=== PATIENT | male | born 1960 | race Caucasian/White ===

== ENCOUNTER 2017-09-20 05:56 | Day surgery (SDC) | payer OTHER ==
[2017-09-20] MEDS ORDERED: ROCURONIUM BROMIDE 50MG/5ML VIAL IV ONE (05:57)
[2017-09-20] MEDS ORDERED: LIDOCAINE 2% MDV (20MG/ML) 20ML VIAL IV ONE (05:57)
[2017-09-20] MEDS ORDERED: SEVOFLURANE 250 ML INH ONE (05:57)
[2017-09-20] MEDS ORDERED: TRANEXAMIC ACID 1,000 MG/10 ML ML IV ONE (05:57)
[2017-09-20] MEDS ORDERED: VANCOMYCIN HCL 1 GM VIAL IVPB ONE (05:57)
[2017-09-20] MEDS ORDERED: KETOROLAC 30 MG/ML VIAL IVP ONE (05:57)
[2017-09-20] MEDS ORDERED: NEOSTIGMINE 1 MG/1 ML,10ML VIAL IV ONE (05:57)
[2017-09-20] MEDS ORDERED: PROPOFOL 10 MG/ML VIAL IV ONE (05:57)
[2017-09-20] MEDS ORDERED: GLYCOPYRROLATE 0.2 MG/ML ML IV ONE (05:57)
[2017-09-20] MEDS ORDERED: HYDROMORPHONE HCL 2 MG/ML VIAL IV ONE (05:57)
[2017-09-20] MEDS ORDERED: SUFENTANIL CITRATE 50 MCG/ML AMPUL IV ONE (05:57)
[2017-09-20] MEDS ORDERED: VANCOMYCIN HCL 1,000 MG in DEXTROSE 5 % IN WATER 250 ML IVPB ONE ×2 (06:00)
[2017-09-20] MEDS ORDERED: METOCLOPRAMIDE 10 MG TABLET PO ONE (06:00)
[2017-09-20] MEDS ORDERED: CELECOXIB 100 MG CAPSULE PO ONE (06:00)
[2017-09-20] MEDS ORDERED: ACETAMINOPHEN 1,000 MG/100 ML BTL IV ONE (06:00)
[2017-09-20] MEDS ORDERED: MECLIZINE 25 MG TABLET PO ONE (06:00)
[2017-09-20] MEDS ORDERED: FAMOTIDINE 20MG TABLET PO ONE (06:00)
[2017-09-20 06:54] LABS: ABO GROUP A; ANTIBODY SCREEN NEGATIVE (NEGATIVE); RH TYPE POSITIVE
[2017-09-20] MEDS ORDERED: MAGNESIUM HYDROXIDE 30 ML UDC PO PRN (08:38)
[2017-09-20] MEDS ORDERED: ONDANSETRON 4 MG ODT TABLET SL PRN (08:38)
[2017-09-20] MEDS ORDERED: DIPHENHYDRAMINE HCL 25 MG CAPSULE PO PRN (08:38)
[2017-09-20] MEDS ORDERED: ACETAMINOPHEN W/ CODEINE 300MG/30MG TABLET PO PRN ×2 (08:38)
[2017-09-20] MEDS ORDERED: NALOXONE 0.4 MG/1 ML VIAL IVP PRN (08:38)
[2017-09-20] MEDS ORDERED: TRAMADOL HCL 50 MG TABLET PO PRN ×2 (08:38)
[2017-09-20] MEDS ORDERED: HYDROCODONE/APAP 7.5/325MG TABLET PO PRN ×2 (08:38)
[2017-09-20] MEDS ORDERED: BISACODYL 10 MG SUPP RC PRN (08:38)
[2017-09-20] MEDS ORDERED: KETOROLAC 30 MG/ML VIAL IVP PRN ×2 (08:38)
[2017-09-20] MEDS ORDERED: METOCLOPRAMIDE 10 MG TABLET PO PRN (08:38)
[2017-09-20] MEDS ORDERED: HYDROCODONE/APAP 5/325MG TABLET PO PRN ×2 (08:38)
[2017-09-20] MEDS ORDERED: ACETAMINOPHEN 325 MG TAB PO PRN (08:38)
[2017-09-20] MEDS ORDERED: PROMETHAZINE HCL 25 MG TABLET PO PRN (08:38)
[2017-09-20] MEDS ORDERED: AL HYDROX/MAG HYDROX 30ML UD PO PRN (08:38)
[2017-09-20] MEDS ORDERED: ACETAMINOPHEN W/ CODEINE 300MG/60MG TABLET PO PRN ×2 (08:38)
[2017-09-20] MEDS ORDERED: DEXTROSE 5 % AND 0.9 % NACL 1,000 ML IV PRN (10:00)
[2017-09-20] MEDS ORDERED: DOCUSATE SODIUM 100 MG CAPSULE PO SCH (10:00)
[2017-09-20] MEDS ORDERED: VANCOMYCIN HCL 500 MG in 0.9 % SODIUM CHLORIDE 100ML 100 ML IVPB SCH (11:00)
[2017-09-20 12:36] LABS: HEMATOCRIT 38.9 % (42.0-52.0)
--- NOTE | 2017-09-20 13:13 | RADIOLOGY REPORT ---
EXAM: RIGHT HIP HISTORY: POSTOP. TECHNIQUE: A single AP view of the right hip was performed. FINDINGS: The right hip prosthesis is in place. No evidence of fracture or dislocation. IMPRESSION: RIGHT HIP PROSTHESIS IN PLACE. JOB NUMBER: [id number] [facility]
--- NOTE | 2017-09-20 13:31 | Operative Note ---
DATE OF SURGERY: 09/20/2017 PREOPERATIVE DIAGNOSIS: End-stage right hip arthrosis. POSTOPERATIVE DIAGNOSIS: End-stage right hip arthrosis. OPERATION: Right total hip arthroplasty. Surgeon: Nayan Davis MD Anesthesia: WILFREDO Trevizo. COMPLICATIONS: None. 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 COMPONENTS PLACED: [employer] Synergy total hip arthroplasty system cemented collar size 16 high offset femoral stem with a 13 centralizer, a distal cement restrictor, and a 36 plus 4 mm Oxinium femoral head component, a 62 mm 3-hole acetabular shell with 1 acetabular screw, 2 screw caps, and a centrally-threaded screw cap and a 20-degree hooded highly cross-linked polyethylene liner Indication: A 57-year-old male who has had severe pain and dysfunction of his hip for several years. Failed nonoperative treatment. Scheduled for procedure above. I explained all risks and benefits in detail for the diagnosis and procedure including but not limited to infection, nerve injury, vessel injury, persistent pain, stiffness, numbness, tingling in his hip, periprosthetic fracture, need for resection arthroplasty shoulder the components become infected or loosen, blood clot, need for anticoagulation to prevent blood clots and risks associated with these medications, and need for further procedures. All his questions were answered. The course was outlined. He agreed to proceed. PROCEDURE: The patient brought to the OR and placed in the left lateral decubitus position. The right hip and lower extremity prepped and draped in sterile fashion. Prepped using Chloraprep and draped. An intraoperative timeout was performed. Next, a standard posterior approach was performed at the hip. Intraoperative timeout was performed. Incision was marked out, infiltrated with 0.5% Marcaine with epinephrine using an incision marking template. Skin and subcutaneous tissue dissected down to gluteal fascia. Gluteal fascia split longitudinally. The subgluteal plane was bluntly dissected. Self-retainer was brought in. We dissected under the subgluteal fascia, identified the sciatic nerve, carefully protected at all times. Took off the short external rotators, tagged them with #2 Vicryl and then dissected down onto the capsule. Released the capsule longitudinally along the femoral neck to the base of the femoral neck to the lesser trochanter and then dislocated the femoral head. He had a massive femoral head of 62 mm in diameter, severely deformed, arthritic, erosive, pitting cartilage with large massive osteophytes. Next, we resected the femoral head about 1.5 cm above the lesser trochanter. Removed the short external rotator tendon stumps. Inserted the box osteotome and started reaming by hand with a 7 mm reamer working in 1 mm increments up to size 17. We stopped there. We broached a 15 in 15 degrees of anteversion in the calcar plane and then a 16. We stopped with a 16, as it had a good fit proximally in the calcar plane there. Attention turned to the acetabulum. Placed inferior acetabular retractor, released the capsule anteriorly and placed a cobra retractor there. Retracted the proximal femur and then resected the capsule and labrum around the periphery of the acetabulum. We had a massive size acetabulum. Started reaming with a 50 mm reamer working in 2 mm increments in 45 degrees inclination and 20 degrees anteversion until we reamed up to a size 61. This had nice peripheral and central fit now. We trialed a 62 and it fit nicely. Next, we irrigated the acetabulum copiously. We changed gloves and impacted down the real 62 mm 3-hole acetabular shell component using a helicopter guide in 45 degrees inclination and 20 degrees anteversion. Verified it was flush to the medial wall. We then drilled the posterior central superior quadrant screw hole and inserted a 45 mm screw, which had good purchase. We then placed a trial liner and then did a trial reduction. Best combination of range of motion, stability, and leg lengths was with a 36 mm head plus 4 mm length high-offset stem. This allowed for symmetric leg lengths, flexion to 90, internal rotation to 80 before the hip dislocated and stability with extension and external rotation and good abductor tension with the sizes that we used. Next, we removed all trial components, irrigated the acetabular shell, placed 2 screw caps, a centrally-threaded screw cap, and then we trimmed some of the acetabular rim bone around the posterior-inferior portion to have a nice contour and impacted down the real 20-degree hooded highly cross-linked polyethylene liner with the whitaker in posterior-superior quadrant. Next, then irrigated the femoral canal again, placed cement restricted distally with previously mixed cement and injected the antibiotic cement with third degree cement technique. Removed the suction catheter and then inserted the real collared cement stem in 15 degrees anteversion, held it there until cement hardened, cleaned and debrided all excess cement. We cleaned and dried the trunnion once the cement hardened and impacted down the real Oxinium femoral head component, reduced the hip and found that the range of motion to be the same. Next, we irrigated copiously and closed the short external rotators to the abductors using #2 Vicryl stitch. We then injected deep to superficial with our 0.5% Marcaine with epinephrine, 2 g tranexamic acid, and Exparel mixture, injected the short external rotators, the periosteum around the proximal femur, the gluteal muscle anteriorly and posteriorly and then more superficially in the subcutaneous tissue. Then irrigated again, closed the gluteal fascia with running #2 Vicryl, closed the skin deep with 2-0 Vicryl and a zipline was applied. Sterile dressing. Abduction pillow. Intraoperative x-ray revealed good fit and orientation of components. The patient tolerated the procedure well. No intraoperative complications. All sponge, needle, and blade counts correct. Sent to recovery in stable condition. Neurovascularly intact. Can be discharged as an outpatient today. Have home therapy and home nurse immediately today. Followup in 2 weeks. Have home PT and therapy. GERMAIN
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
== END 2017-09-20 16:15 | disposition home health service (06) ==
LOC: SUR 05:56 → MEDSURG 12:10 → SUR 16:15
PROVIDERS: ATTEND Orthopaedic Surgery
DX: M16.11 Unilateral primary osteoarthritis, right hip (principal); Z86.73 Personal history of transient ischemic attack (TIA), and cerebral infarction without residual deficits
CPT/HCPCS: 27130; 01214; 85018; 85014; 86900; 86901; 86850; 73501; J1885; J3370; J1170; J3490; 97165; J2710; J7060